=== PATIENT | female | born 1985 | race Caucasian/White ===

== ENCOUNTER → 2016-10-22 | Outpatient (CLI) | payer MEDICAID | END | disposition home or self-care (01) | LOC: Rad HDHVI 15:14 | PROVIDERS: ATTEND Internal Medicine Cardiovascular Disease | DX: R00.2 Palpitations (principal) | CPT/HCPCS: 93306 ==

== ENCOUNTER 2018-02-22 00:14 | Emergency (ER) | payer MEDICAID ==
[~2018-02-22] VITALS: Ht 162.6 cm; Wt 93.0 kg
[2018-02-22 00:24] VITALS: BP 130/81
== END 2018-02-22 05:11 | disposition home or self-care (01) ==
LOC: ER 00:16
DX: S93.401A Sprain of unspecified ligament of right ankle, initial encounter (principal); S90.31XA Contusion of right foot, initial encounter; Z88.2 Allergy status to sulfonamides; Z88.1 Allergy status to other antibiotic agents; V89.2XXA Person injured in unspecified motor-vehicle accident, traffic, initial encounter; Y93.89 Activity, other specified; Y92.89 Other specified places as the place of occurrence of the external cause; Y99.8 Other external cause status
CPT/HCPCS: 73630; 99284; L3260

== ENCOUNTER 2018-02-25 15:07 | Emergency (ER) | payer MEDICAID ==
[~2018-02-25] VITALS: Ht 162.6 cm; Wt 93.0 kg
[2018-02-25 15:14] VITALS: BP 124/68
== END 2018-02-25 20:51 | disposition home or self-care (01) ==
LOC: ER 15:12
DX: M79.671 Pain in right foot (principal); Z88.1 Allergy status to other antibiotic agents; Z88.2 Allergy status to sulfonamides
CPT/HCPCS: 93971

== ENCOUNTER 2019-06-14 11:06 | Emergency (ER) | payer MEDICAID ==
[~2019-06-14] VITALS: Ht 167.6 cm; Wt 89.8 kg
[2019-06-14 12:37] LABS: Albumin 4.1 g/dL (3.4-5.0); Anion Gap 11 (5-15); Blood Urea Nitrogen 11 mg/dL (7-18); Calcium 9.3 mg/dL (8.5-10.1); Carbon Dioxide 23 mmol/L (21-32); Chloride 107 mmol/L (98-107); Glucose 86 mg/dL (74-106); Potassium 3.7 mmol/L (3.5-5.1); Sodium 141 mmol/L (136-145)
[2019-06-14 12:39] LABS: Basophils # (auto) 0.1 uL; Basophils % (auto) 0.6 % (0.0-2.0); Eosinophils # (auto) 0.2 uL; Eosinophils % (auto) 1.9 % (0.0-7.0); Hematocrit 42.8 % (36.0-46.0); Hemoglobin 14.6 g/dL (12.2-16.2); Lymphocytes # (auto) 2.3 uL; Lymphocytes % (auto) 22.3 % (10.0-50.0); Mean Corpuscular Hemoglobin 29.4 pg (28.0-32.0); Mean Corpuscular Hgb Conc. 34.1 g/dL (32.0-36.0); Mean Corpuscular Volume 86.2 fL (80.0-100.0); Monocytes # (auto) 0.6 uL; Monocytes % (auto) 6.1 % (0.0-12.0); Neutrophils # (auto) 7.1 uL; Neutrophils % (auto) 69.1 % (37.0-80.0); Platelet Count (auto) 228 10^3/uL (140-450); Red Blood Cells 4.96 10^6/uL (4.0-5.20); Red Cell Distribution Width 12.9 % (11.8-14.3); White Blood Cell 10.3 10^3/uL (4.4-10.8)
[2019-06-14 12:45] LABS: Alanine Aminotransferase 19 U/L (13-56); Alkaline Phosphatase 113 U/L (45-117); Aspartate Aminotransferase 13 U/L (15-37); BUN/Creatinine Ratio 15.1; Bilirubin, Total 0.4 mg/dL (0.2-1.0); GFR African American 117 mL/min; GFR Non-African American 96 mL/min; Total Protein 8.3 g/dL (6.4-8.2)
[2019-06-14 13:06] LABS: Urine Bacteria FEW /hpf (None Seen); Urine Blood Negative /uL (Negative); Urine Specific Gravity 1.004 (1.001-1.035); Urine WBC 34 /hpf (0 - 5); Urine WBC Clumps PRESENT /hpf (None Seen)
[2019-06-14 13:40] LABS: Beta HCG, Quantitative < 1 mlU/mL (1-3)
[2019-06-14 13:42] LABS: INR < 0.93 (0.9-1.15); Partial Thromboplastin Time 30.2 sec (23.64-32.05)
[2019-06-14] MEDS ORDERED: ACETAMINOPHEN 325 MG TAB PO ONE ×2 (14:00→14:05)
[2019-06-14] MEDS ORDERED: cefTRIAXone 1GM/50ML D5W 50 ML IV ONE (14:00)
[2019-06-14] MEDS ORDERED: cefTRIAXone SOD 1,000 MG VL ONE (14:04)
[2019-06-14] MEDS ORDERED: KETOROLAC TROMETH 30 MG/ML 1ML VIAL IV ONE (17:30)
[2019-06-14 20:00] VITALS: BP 113/54
[2019-06-14] MEDS ORDERED: HYDROcodone-ACET 5/325MG TAB PO PRN (20:00)
[2019-06-14] MEDS ORDERED: ONDANSETRON HCL 4 MG/2 ML VIAL IV PRN (20:00)
[2019-06-14] MEDS ORDERED: ACETAMINOPHEN 500 MG TAB PO PRN (20:00)
[2019-06-14] MEDS ORDERED: NITROGLYCERIN 0.4 MG SL TAB SL PRN (20:00)
[2019-06-14] MEDS ORDERED: MORPHINE SULF INJ 2 MG/ML SYRINGE 1ML IV PRN ×2 (20:00)
[2019-06-15] MEDS ORDERED: cefTRIAXone 1GM/50ML D5W 50 ML IV SCH (09:00)
[2019-06-15] MEDS ORDERED: FAMOTIDINE 20 MG TAB PO SCH (10:00)
== END 2019-06-14 21:13 | disposition left against medical advice (07) ==
LOC: EDBD 11:06 → ER 11:07
DX: R07.9 Chest pain, unspecified (principal); F41.9 Anxiety disorder, unspecified; N39.0 Urinary tract infection, site not specified; R51 Headache; Z88.1 Allergy status to other antibiotic agents; Z88.2 Allergy status to sulfonamides
CPT/HCPCS: 36415; 70450; 71046; 80053; 81001; 84443; 84484; 84702; 85025; 85379; 85610; 85730; 87086; 93005; 94761; 96365; 96375; 99284; J0696; J1885

== ENCOUNTER → 2020-07-17 | Outpatient (CLI) | payer BC ==
[2020-07-17 12:32] LABS: Urine Bacteria FEW /hpf (None Seen); Urine Blood TRACE /uL (Negative); Urine Mucus FEW (None Seen); Urine Specific Gravity 1.029 (1.001-1.035); Urine WBC 2 /hpf (0 - 5)
== END | disposition home or self-care (01) ==
LOC: LAB 11:45
PROVIDERS: ATTEND Nurse Practitioner
DX: N80.9 Endometriosis, unspecified (principal); Z33.1 Pregnant state, incidental
CPT/HCPCS: 36415; 81001; 81025; 84702

== ENCOUNTER 2023-11-11 10:14 | Emergency (ER) | payer BC, MEDICAID ==
[~2023-11-11] VITALS: Ht 162.6 cm; Wt 103.4 kg
[2023-11-11 10:33] LABS: Urine Epithelial Cast None Seen /hpf (<5); Urine WBC None Seen /hpf (0 - 5)
[2023-11-11 10:55] VITALS: BP 138/84; PULSE 73; RESP 18; TEMP 97.5; O2SAT 97
[2023-11-11 11:10] LABS: Urine Bacteria FEW /hpf (None Seen); Urine Blood Negative /uL (Negative); Urine Clarity Clear (Clear); Urine Protein, UAD Negative (Negative); Urine Specific Gravity 1.002 (1.001-1.035); Urine Urobilinogen Normal (Negative)
[2023-11-11 11:13] LABS: Urine Color Yellow (Yellow)
[2023-11-11] MEDS ORDERED: KETOROLAC TROMETH 60MG/2ML VIAL IM ONE (11:15)
[2023-11-11] MEDS ORDERED: IBUP-1456 PO (11:41)
[2023-11-11] MEDS ORDERED: METH-1182 PO (11:41)
== END 2023-11-11 11:42 | disposition home or self-care (01) ==
LOC: ER 10:14
DX: S39.012A Strain of muscle, fascia and tendon of lower back, initial encounter (principal); F41.9 Anxiety disorder, unspecified; F32.9 Major depressive disorder, single episode, unspecified; Z88.8 Allergy status to other drugs, medicaments and biological substances; Z79.899 Other long term (current) drug therapy; X58.XXXA Exposure to other specified factors, initial encounter; Y93.89 Activity, other specified; Y92.89 Other specified places as the place of occurrence of the external cause; Y99.8 Other external cause status
CPT/HCPCS: 81001; 81025; J1885

== ENCOUNTER 2024-10-07 16:23 | Emergency (ER) | payer BC, SELFPAY ==
[~2024-10-07] VITALS: Ht 162.6 cm; Wt 106.0 kg
[~2024-10-07 16:23] MED LIST: IBUP-1456 PO; METH-1182 PO
--- NOTE | 2024-10-07 18:00 | ED.PDOC ---
HPI (NEURO) HPI Comments HPI: Poor Historian. 38 year old female presents to the ED with chief complaint of dizziness. Patient reports that she has been experiencing intermittent dizziness with her feeling like the room is spinning around her for 2 weeks. Patient states that her recent episode today started at 1350 today and has been constant since then with an associated single episode nausea. Patient states she had a recent infection of her bilateral ears [address] [facility] and was told she had a "fungal infection," but was prescribed Amoxicillin. Patient notes she had finished her medication and no longer feels any ear pain, but since then, she has been hearing fluid sloshing in her ears. Patient denies any headache, fever, chills, nasal congestion, or sore throat. When asked the patient to rotate her head left and right rapidly, she started developing and reproducing the vertigo sensation of everything spinning around her with the associated nausea. Patient denies any history of fall or trauma or injury to the head. Initial Vital Signs: Temp : 98F BP: 117/61 HR: 96 RR: 16 SpO2: 98% Past Medical History: Anxiety, Depression, Endometriosis Past Surgical History: Denies Social History: Denies smoking, ETOH, or drug use. Medications: Amoxicillin Allergies: Levofloxacin, Sulfa Antibiotics REVIEW OF SYSTEMS: CONSTITUTIONAL: Denies acute: fever, diaphoresis, chills, generalized weakness. HEAD: Denies acute: headache, photophobia Eyes: Denies acute: Double vision, vision loss, eye pain, eye discharge. EARS: Denies acute: tinnitus, hearing loss, ear discharge, ear pain, THROAT: Denies acute: sore throat, swelling, difficulty swallowing , pain with swallowing, change in voice. NECK: Denies acute: neck pain, neck swelling, stiff neck. HEART: Denies acute : chest pain, palpitations, LUNGS: Denies acute: SOB, wheezing, cough, hemoptysis ABDOMEN: Denies acute: abdominal pain, Vomiting, diarrhea, melena , hematemesis, hemato chezia SKIN: Denies acute: rash, redness, lesions, itchiness. EXTREMITIES: Denies acute: calf pain, numbness, tingling, weakness, denies pain in extremity. Denies acute: Low back pain. Neuro: Denies acute: focal neurological deficit, motor or sensory focal neurological deficit, tremors, seizure like activity, confusion, change in mental status, loss of bowel or bladder function, cauda equina like symptoms. : Denies acute: dysuria, hematuria, flank pain, increase in urinary frequency. PSYCH: Denies acute: hallucination, suicidal ideation, homicidal ideation. FEMALE: Denies acute: abnormal vaginal bleeding, foul odor, unusual discharge. PHYSICAL EXAM: General: no acute distress, awake and alert. Head: normocephalic, atraumatic. Neck: supple, trachea is midline, no swelling. Throat: Normal phonation. Eyes:, no erythema, no purulent discharge, no proptosis, no icterus. Heart: regular rate, regular rhythm, no significant murmur appreciated. Lungs: no apparent respiratory distress, Able to speak in full sentences. No wheezing, no rhonchi, no crackles. No stridors Clear to auscultation bilaterally. Abdomen: non tender to palpation, non distended, soft, no guarding, no rebound, + bowel sounds. Neuro: Awake, Alert, oriented to name, self, situation, follows commands GCS=15. Speech is normal. Skin: no petechia, no purpura, no cyanosis, non-pale, not jaundice. Lower extremities: --no - Pitting edema no deformity, no focal swelling, no calf TTP. Makes eye contact. moves all four extremities. Face: no apparent facial droop. Ambulating in the ED independently. Ears: Left tympanic membrane is normal in appearance. View of Right tympanic pain is occluded with ceruminous wax. There is no discharge bilateral ear canals. Palpation of bilateral mastoids reveals no tenderness to palpation. No swelling, no erythema. Stroke: finger to nose cerebellar testing is intact. No pronator drift. 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 No nuchal rigidity, Kernig's sign, Brudzinski's sign, no meningeal signs. Chief Complaint: Dizziness Time Seen by MD: 17:55 Primary Care Provider: CARMELITA Reviewed Notes: Nurses Notes, Medications, Allergies Information Source: Patient Mode of Arrival: Ambulatory Was a procedure done? Was a procedure done?: No X-Ray, Labs, Meds, VS Vital Signs Date Time Temp Pulse Resp B/P (MAP) Pulse Ox O2 Delivery O2 Flow Rate FiO2 10/07/24 18:20 70 18 98 Room Air 10/07/24 18:20 98.3 70 18 126/64 (84) 98 98.3 10/07/24 17:00 98.0 66 16 117/61 (79) 98 Lab Test 10/07/24 18:17 10/07/24 17:10 Range/Units White Blood Count 11.5 H 4.4-10.8 10^3/uL Red Blood Count 5.12 4.0-5.20 10^6/uL Hemoglobin 14.3 12.2-16.2 g/dL Hematocrit 43.8 36.0-46.0 % Mean Corpuscular Volume 85.5 80.0-100.0 fL Mean Corpuscular Hemoglobin 27.9 L 28.0-32.0 pg Mean Corpuscular Hemoglobin Concent 32.6 32.0-36.0 g/dL Red Cell Distribution Width 13.6 11.8-14.3 % Platelet Count 240 140-450 10^3/uL Mean Platelet Volume 8.8 6.9-10.8 fL Neutrophils (%) (Auto) 66.9 37.0-80.0 % Lymphocytes (%) (Auto) 25.3 10.0-50.0 % Monocytes (%) (Auto) 5.0 0.0-12.0 % Eosinophils (%) (Auto) 2.1 0.0-7.0 % Basophils (%) (Auto) 0.7 0.0-2.0 % Neutrophils # (Auto) 7.7 1.6-8.6 10 ^3/uL Lymphocytes # (Auto) 2.9 0.4-5.4 10 ^3/uL Monocytes # (Auto) 0.6 0-1.3 10 ^3/uL Eosinophils # (Auto) 0.2 0-0.8 10 ^3/uL Basophils # (Auto) 0.1 0-0.2 10 ^3/uL Nucleated Red Blood Cells 0.0 % Sodium Level 137 136-145 mmol/L Potassium Level 4.4 3.5-5.1 mmol/L Chloride Level 106 98-107 mmol/L Carbon Dioxide Level 26 20-31 mmol/L Anion Gap 5 5-15 Blood Urea Nitrogen 11 9-23 mg/dL Creatinine 0.68 0.550-1.02 mg/dL Glomerular Filtration Rate Calc 113 >90 mL/min BUN/Creatinine Ratio 16.2 10.0-20.0 Serum Glucose 91 74-106 mg/dL Calcium Level 10.3 8.7-10.4 mg/dL Total Bilirubin 0.3 0.2-1.0 mg/dL Aspartate Amino Transferase (AST) 16 13-40 U/L Alanine Aminotransferase (ALT) 24 7-40 U/L Alkaline Phosphatase 108 46-116 U/L Total Protein 7.8 5.7-8.2 g/dL Albumin 4.8 3.2-4.8 g/dL Beta HCG, Quantitative 1.7 1.5-4.2 mIU/mL Urine Color Light-yellow Yellow Urine Clarity Clear Clear Urine pH 6.0 5.0-9.0 Urine Specific [place] 1.025 1.001-1.035 Urine Protein Negative Negative Urine Ketones Negative Negative Urine Blood Negative Negative /uL Urine Nitrite Negative Negative Urine Bilirubin Negative Negative Urine Urobilinogen Normal Negative mg/dL Urine Leukocyte Esterase Trace Negative /uL Urine RBC 1 0 - 4 /hpf Urine WBC <1 0 - 5 /hpf Urine Squamous Epithelial Cells Few <5 /hpf Urine Bacteria None seen None Seen /hpf Urine Glucose Normal Normal mg/dL Current Medications Medications (Trade) Dose Ordered Sig/Rush Route Start Time Stop Time Status Last Admin Meclizine HCl (Antivert Tablet) 25 mg ONCE ONCE PO 10/07/24 18:00 10/07/24 18:01 DC 10/07/24 18:17 [place] [address] Ph: [phone] DIAGNOSTIC IMAGING Diagnostic Imaging Report : [id number] Signed PATIENT: GINA SEAMAN ACCT: [id number] UNIT: [id number] : 1985 LOC: ER ROOM / BED: / AGE / SEX: 38 / F ADM STATUS: REG ER SERVICE [id number] ORDERING PHYSICIAN: DARA WILSON DO PROCEDURE(s): IAC WO - INTERNAL AUDITORY CANAL REASON: dizzy ORDER NUMBER(s): [id number], ACCESSION NUMBER(s): [id number] HISTORY: dizzy TECHNIQUE: Nonenhanced axial images through the facial bones with coronal and sagittal MPR. Radiation Dose Information: CT Dose: CTDI volume is 60.23 mGy. Dose-length product is 615.47 mGy*cm FINDINGS: Ossicles appear normal bilaterally. There is no opacification of the mastoid air cells. No findings to suggest cholesteatoma. Aditus ad antrum appears normal with no erosions. IMPRESSION: 1. No findings of mastoiditis. 2. Ossicles are present bilaterally with no erosions. 3. No CT findings to suggest cholesteatoma. Radiation optimization: All CT scans at this facility use at least one of these dose optimization techniques: automated exposure control mA and/or kV adjustment per patient size (includes targeted exams where dose is matched to clinical indication) or iterative reconstruction. HS:Y ATED BY: DIANE CARL Jr., DO DICTATED DATE/TIME: 10/07/241955 SIGNED BY: DIANE CARL Jr., DO SIGNED DATE/TIME: 10/07/241955 CC: Time of 1ST Reevaluation: 18:55 Reevaluation 1ST: Unchanged Patient Education/Counseling: Diagnosis, Treatment Family Education/Counseling: No Family Present Departure 1 Departure Time of Disposition: 20:46 Impression: Primary Impression: Vertigo Disposition: 01 HOME / SELF CARE / HOMELESS Condition: Stable Additional Instructions: Additional discharge instructions: You MUST follow-up with your primary care/family doctor in 1 to 2 days. If you are unable to see your primary care/family doctor, please return to our emergency room for re-assessment and re-evaluation in 1 to 2 days. Return to the emergency room here in our facility or to the nearest ER [facility] if your symptoms change or worsen. CONSULTATIONS: you MUST Follow-up for consultation as soon as possible with: ENT and neurology in 1-2 days. Please call for appointment You MUST call the consultants office yourself to make an appointment. You may need to arrange that through your insurance and/or your primary/family doctor. If you are unable to see the applications sales consultant in 1 to 2 days, you must return to our emergency room (or any other ER of your choice) for re-assessment and re- evaluation. Adequate fluid hydration. Below is a copy of your radiological report for follow up: [address] [address] Ph: [phone] DIAGNOSTIC IMAGING Diagnostic Imaging Report : [id number] Signed PATIENT: GINA SEAMAN ACCT: [id number] UNIT: [id number] : 1985 LOC: ER ROOM / BED: / AGE / SEX: 38 / F ADM STATUS: REG ER SERVICE [id number] ORDERING PHYSICIAN: DARA WILSON DO PROCEDURE(s): IAC WO - INTERNAL AUDITORY CANAL REASON: dizzy ORDER NUMBER(s): [id number], ACCESSION NUMBER(s): [id number] HISTORY: dizzy TECHNIQUE: Nonenhanced axial images through the facial bones with coronal and sagittal MPR. Radiation Dose Information: CT Dose: CTDI volume is 60.23 mGy. Dose-length product is 615.47 mGy*cm FINDINGS: Ossicles appear normal bilaterally. There is no opacification of the mastoid air cells. No findings to suggest cholesteatoma. Aditus ad antrum appears normal with no erosions. IMPRESSION: 1. No findings of mastoiditis. 2. Ossicles are present bilaterally with no erosions. 3. No CT findings to suggest cholesteatoma. Radiation optimization: All CT scans at this facility use at least one of these dose optimization techniques: automated exposure control mA and/or kV adjustment per patient size (includes targeted exams where dose is matched to clinical indication) or iterative reconstruction. HS:Y ATED BY: DIANE CARL Jr., DO DICTATED DATE/TIME: 10/07/241955 SIGNED BY: DIANE CARL Jr., SIGNED DATE/TIME: 10/07/241955 CC: e-Prescriptions Ondansetron Odt 4MG Tab (ZOFRAN PO) 4 Mg Tb 4 MG PO Q8HPRN PRN for 3 Days, #9 TAB ODT TAB-DISSOLVE IN MOUTH, THEN SWALLOW Prov: DARA WILSON DO 10/07/24 Meclizine HCl (Meclizine 25) 25 Mg Tab 25 MG PO Q8HPRN PRN for 3 Days, #9 TAB Prov: DARA WILSON DO 10/07/24 Discharged With: Self Critical Care Note Critical Care Time?: No I personally scribed for DARA WILSON DO ([email or web address]) on 10/07/24 at 18:00. Electronically submitted by Carlos Lowe ([email or web address]). I personally scribed for DARA WILSON DO ([email or web address]) on 10/07/24 at 19:26. Electronically submitted by Elodia Cunningham ([email or web address]). I personally scribed for DARA WILSON DO ([email or web address]) on 10/07/24 at 21:31. Electronically submitted by Elodia Cunningham ([email or web address]). DARA WILSON DO Oct 07, 2024 18:00
[2024-10-07] MEDS: MECLIZINE HCL 25 MG TAB PO ONE (18:17)
[2024-10-07 19:07] LABS: Basophils # (auto) 0.1 10 ^3/uL (0-0.2); Basophils % (auto) 0.7 % (0.0-2.0); Eosinophils # (auto) 0.2 10 ^3/uL (0-0.8); Eosinophils % (auto) 2.1 % (0.0-7.0); Hematocrit 43.8 % (36.0-46.0); Hemoglobin 14.3 g/dL (12.2-16.2); Lymphocytes # (auto) 2.9 10 ^3/uL (0.4-5.4); Lymphocytes % (auto) 25.3 % (10.0-50.0); Mean Corpuscular Hemoglobin 27.9 pg (28.0-32.0); Mean Corpuscular Hgb Conc. 32.6 g/dL (32.0-36.0); Mean Corpuscular Volume 85.5 fL (80.0-100.0); Monocytes # (auto) 0.6 10 ^3/uL (0-1.3); Neutrophils # (auto) 7.7 10 ^3/uL (1.6-8.6); Neutrophils % (auto) 66.9 % (37.0-80.0); Platelet Count (auto) 240 10^3/uL (140-450); Red Blood Cells 5.12 10^6/uL (4.0-5.20); Red Cell Distribution Width 13.6 % (11.8-14.3); White Blood Cell 11.5 10^3/uL (4.4-10.8)
[2024-10-07 19:10] LABS: Alanine Aminotransferase 24 U/L (7-40); Alkaline Phosphatase 108 U/L (46-116); Anion Gap 5 (5-15); Aspartate Aminotransferase 16 U/L (13-40); BUN/Creatinine Ratio 16.2 (10.0-20.0); Blood Urea Nitrogen 11 mg/dL (9-23); Calcium 10.3 mg/dL (8.7-10.4); Carbon Dioxide 26 mmol/L (20-31); Chloride 106 mmol/L (98-107); Glucose 91 mg/dL (74-106); Potassium 4.4 mmol/L (3.5-5.1); Sodium 137 mmol/L (136-145); Total Protein 7.8 g/dL (5.7-8.2)
[2024-10-07 19:12] LABS: Albumin 4.8 g/dL (3.2-4.8); Bilirubin, Total 0.3 mg/dL (0.2-1.0)
--- NOTE | 2024-10-07 19:58 | DVH ---
HISTORY: dizzy TECHNIQUE: Nonenhanced axial images through the facial bones with coronal and sagittal MPR. Radiation Dose Information: CT Dose: CTDI volume is 60.23 mGy. Dose-length product is 615.47 mGy*cm FINDINGS: Ossicles appear normal bilaterally. There is no opacification of the mastoid air cells. No findings to suggest cholesteatoma. Aditus ad antrum appears normal with no erosions. IMPRESSION: 1. No findings of mastoiditis. 2. Ossicles are present bilaterally with no erosions. 3. No CT findings to suggest cholesteatoma. Radiation optimization: All CT scans at this facility use at least one of these dose optimization sanjana hniques: automated exposure control mA and/or kV adjustment per patient size (includes targeted exam s where dose is matched to clinical indication) or iterative reconstruction. HS:Y
[2024-10-07 20:36] LABS: Urine Bacteria None Seen /hpf (None Seen)
[2024-10-07] MEDS ORDERED: MECL1TAB42 PO (20:48)
[2024-10-07 21:00] LABS: Urine Blood Negative /uL (Negative); Urine Clarity Clear (Clear); Urine Color Light-Yellow (Yellow); Urine Protein, UAD Negative (Negative); Urine Specific Gravity 1.025 (1.001-1.035); Urine Urobilinogen Normal (Negative); Urine WBC <1 /hpf (0 - 5)
[2024-10-07] MEDS ORDERED: ZOFR4T PO (21:27)
[2024-10-07 21:34] VITALS: BP 100/59; PULSE 60; RESP 17; TEMP 98; O2SAT 97
== END 2024-10-07 21:38 | disposition home or self-care (01) ==
LOC: ER 16:23
DX: R42 Dizziness and giddiness (principal); R10.2 Pelvic and perineal pain; Z88.1 Allergy status to other antibiotic agents; Z88.2 Allergy status to sulfonamides
CPT/HCPCS: 36415; 70480; 80053; 81001; 84702; 85025; 99284; J8597